=== PATIENT | male | born 1970 | race Caucasian/White ===

== ENCOUNTER → 2016-04-30 | Outpatient (CLI) | payer BC ==
--- NOTE | 2016-05-02 15:49 | ECHOF ---
Referral Reason:Chest Tightness R07.89 MEASUREMENTS -------- HEIGHT: 167.6 cm WEIGHT: 109.8 kg BP: 154/91 RVIDd: 3.1 cm (< 3.3) IVSd: 1.3 cm (0.6 - 1.1) LVIDd: 4.5 cm (3.9 - 5.3) LVPWd: 1.2 cm (0.6 - 1.1) IVSs: 1.7 cm LVIDs: 2.6 cm LVPWs: 1.9 cm LA Diam: 3.6 cm (2.7 - 3.8) LAESV Index (A-L): 12.01 ml/m Ao Diam: 3.4 cm (2.0 - 3.7) AV Cusp: 2.4 cm (1.5 - 2.6) MV EXCURSION: 16.312 mm (> 18.000) MV EF SLOPE: 36 mm/s (70 - 150) EPSS: 0.7 cm MV E Shahram: 0.70 m/s MV DecT: 214 ms MV A Shahram: 0.84 m/s MV E/A Ratio: 0.84 FINDINGS -------- Sinus rhythm. This was a technically good study. The left ventricular size is normal. There is mild concentric left ventricular hypertrophy. Overall left ventricular systolic function is normal with, an EF between 60 - 65 %. The right ventricle is normal in size and function. Normal LA size by volume 22+/-6 ml/m2. The right atrium is normal in size. The aortic valve is trileaflet and appears structurally normal. Mild mitral annular calcification present. The tricuspid valve appears structurally normal. The pulmonic valve is normal. There is no pulmonic regurgitation present. The aortic root size is normal. IVC Not well visulized. There is no pericardial effusion. CONCLUSIONS -------- 1. Sinus rhythm. 2. Mild mitral annular calcification present. 3. The tricuspid valve appears structurally normal. 4. The aortic root size is normal. 5. IVC Not well visulized. 6. There is no pericardial effusion. 7. This was a technically good study. 8. The left ventricular size is normal. 9. There is mild concentric left ventricular hypertrophy. 10. Overall left ventricular systolic function is normal with, an EF between 60 - 65 %. 11. The right ventricle is normal in size and function. 12. Normal LA size by volume 22+/-6 ml/m2. 13. The right atrium is normal in size. 14. The aortic valve is trileaflet and appears structurally normal. CEMENT SPRAYER HELPER: Santa Combs RDCS
== END | disposition home or self-care (01) ==
LOC: RADECHMAIN 14:37
PROVIDERS: ATTEND Family Medicine
DX: I05.9 Rheumatic mitral valve disease, unspecified (principal)
CPT/HCPCS: 93306

== ENCOUNTER → 2016-08-26 | Outpatient (CLI) | payer BC ==
--- NOTE | 2016-08-26 12:04 | US ---
EXAMINATION TYPE: MSK ultrasound bilateral feet DATE OF EXAM: 08/26/2016 COMPARISON: NONE CLINICAL HISTORY: 46-year-old male M72.2 Plantar fascial fibromatosis bilateral. Patient with previou s left plantar fibroma removed 17 years ago, recurred one to 2 years ago. Right-sided fibroma present for one year. Surgical removal planned bilaterally. TECHNIQUE: Multiple sonographic images along the bilateral plantar fascia to include the sites of pal pable abnormality. FINDINGS: Right: Along the medial band of the plantar fascia near the arch of the foot, there is a lobulated heterogen eous mass measuring 3.4 cm long by 1.0 cm thick by 2.8 cm wide. The origin of the plantar fascia appe ars within normal limits. Left: Along the medial band of the plantar fascia just proximal to the ball of the foot, there is a heterog eneous lobulated mass measuring 4.8 cm long by 1.3 cm thick by 3.9 cm wide. In addition, there is a small plantar calcaneal spur and thickening at the origin of the plantar fasc ia up to 9 mm. No discrete tear is seen. COMBINED IMPRESSION: 1. Right: Large lobulated plantar fibroma near the level of the arch of the foot measuring up to 3.4 x 2.8 cm. 2. Left: Large lobulated plantar fibroma just proximal to the ball of the foot measuring 4.8 x 3.9 cm . 3. Left: Thickening at the origin of the plantar fascia up to 9 mm; correlate for any symptoms of angelo ntar fasciitis.
== END | disposition home or self-care (01) ==
LOC: RADUSWWP 10:33
PROVIDERS: ATTEND Podiatrist Foot & Ankle Surgery
DX: M72.2 Plantar fascial fibromatosis (principal)

== ENCOUNTER 2018-11-07 09:31 | Day surgery (SDC) | payer BC ==
[2018-11-03 12:15] VITALS: BMI 36.4
[~2018-11-07 09:31] MED LIST: LACTATED RINGERS 1,000 ML IV SCH; LIDOCAINE 1% 20 ML VIAL (10MG/ML) FOR IV START INTRADERMA PRN
[2018-11-07 10:01] VITALS: RESP 18; TEMP 97.5
[2018-11-07 10:13] LABS: Glucose,Whole Blood 130 mg/dL (75-99)
[2018-11-07] MEDS ORDERED: LIDOCAINE 1% 20 ML VIAL (10MG/ML) FOR IV START INTRADERMA ONE (10:13)
[2018-11-07] MEDS ORDERED: LACTATED RINGERS 1,000 ML IV ONE (10:15)
[2018-11-07] MEDS ORDERED: PROPOFOL 10 MG/ML 20 ML VIAL IV ONE (10:32)
[2018-11-07] MEDS ORDERED: LIDOCAINE 1% INJ 10MG/ML (20 ML MDV) ONE (10:32)
--- NOTE | 2018-11-07 10:38 | P.GSHP ---
History of Present Illness H&P Date: 11/07/18 Chief Complaint: Screening colonoscopy This a 48-year-old male who presents today for screening colonoscopy. Patient denies a significant GI complaints. Past Medical History Past Medical History: Diabetes Mellitus Additional Past Medical History / Comment(s): MIGRAINE HEADACHES History of Any Multi-Drug Resistant Organisms: None Reported Past Surgical History: Heart Catheterization With Stent Additional Past Surgical History / Comment(s): foot surgery-ganglion cysts Past Anesthesia/Blood Transfusion Reactions: No Reported Reaction Date of Last Stent Placement:: 07/15/08 Smoking Status: Former smoker - Past Family History Mother Family Medical History: No Reported History Medications and Allergies Home Medications Medication Instructions Recorded Confirmed Type Semaglutide [Ozempic] 0.25 mg SQ WEEKLY 10/31/18 11/07/18 History metFORMIN HCL 1,000 mg PO BID 10/31/18 11/07/18 History Omeprazole [PriLOSEC] 20 mg PO AC-BID 11/03/18 11/07/18 History Allergies Allergy/AdvReac Type Severity Reaction Status Date / Time Penicillins Allergy Severe Anaphylaxis Verified 11/07/18 10:01 Surgical - Exam Vital Signs Temp Pulse Resp BP Pulse Ox 97.5 F L 85 18 113/82 94 L 11/07/18 09:59 11/07/18 09:59 11/07/18 09:59 11/07/18 09:59 11/07/18 09:59 - General well developed, well nourished, no distress - Eyes PERRL - ENT normal pinna - Neck no masses - Respiratory normal expansion - Cardiovascular Rhythm: regular - Abdomen Abdomen: soft, non tender Results - Labs Abnormal Lab Results - Last 24 Hours (Table) 11/07/18 Range/Units 10:12 POC Glucose (mg/dL) 130 H (75-99) mg/dL Assessment and Plan Assessment: We'll perform screening colonoscopy.
--- NOTE | 2018-11-07 10:52 | P.OP ---
Date of Procedure: 11/07/18 Preoperative Diagnosis: Screening colonoscopy Postoperative Diagnosis: Normal colon Procedure(s) Performed: Colonoscopy Anesthesia: MAC Surgeon: Ramsey Solis Pathology: none sent Condition: stable Disposition: PACU Description of Procedure: PROCEDURE: The patient was placed on the endoscopy table in the lateral position. Digital rectal examination was performed which revealed no abnormalities. The prostate was symmetrical without nodules. Flexible colonoscope was then placed in the patient's anus and passed throughout the entire colon. The ileocecal valve was visualized. The cecum, ascending, transverse, descending and sigmoid colon were normal. The rectum was normal as well. There were no masses, polyps or diverticula noted in the entire colon. SUMMARY OF FINDINGS: Normal colonoscopy.
[2018-11-07 11:23] VITALS: BP 107/69; PULSE 90
== END 2018-11-07 11:36 | disposition home or self-care (01) ==
LOC: ORWHC2ENDO 09:31
PROVIDERS: ATTEND Surgery
DX: Z12.11 Encounter for screening for malignant neoplasm of colon (principal); I25.10 Atherosclerotic heart disease of native coronary artery without angina pectoris; E11.9 Type 2 diabetes mellitus without complications; K21.9 Gastro-esophageal reflux disease without esophagitis; G43.909 Migraine, unspecified, not intractable, without status migrainosus; Z95.5 Presence of coronary angioplasty implant and graft; Z98.890 Other specified postprocedural states; Z87.891 Personal history of nicotine dependence; Z79.84 Long term (current) use of oral hypoglycemic drugs; Z79.899 Other long term (current) drug therapy; Z88.0 Allergy status to penicillin
CPT/HCPCS: G0121; J2001; J2704; 45378

== ENCOUNTER → 2019-03-09 | Outpatient (CLI) | payer BC ==
--- NOTE | 2019-03-14 12:24 | P.ARTDOP ---
Arterial Doppler LOWER EXTREMITY ARTERIAL DOPPLER: DATE OF SERVICE: 03/09/2019 Reason for study: Follow-up leg stents. Bilateral leg pain. Doppler waveforms: Multiphasic bilaterally throughout. Pulse volume recording: []. Pressure gradients: None. Ankle-brachial indices: Greater than 1 bilaterally. Toe pressures: [] on the right, [] on the left Impression: Normal study.
== END | disposition home or self-care (01) ==
LOC: RADUSWWP 08:47
PROVIDERS: ATTEND Family Medicine
DX: M79.2 Neuralgia and neuritis, unspecified (principal)
CPT/HCPCS: 93922

== ENCOUNTER 2023-02-27 08:50 | Inpatient (IN) | payer BC ==
[2023-02-27] MEDS ORDERED: NITROGLYCERIN SL TABS 0.4 MG TAB SUBLINGUAL STA ×2 (09:02→09:29)
[2023-02-27] MEDS ORDERED: ASPIRIN 81 MG PO STA (09:02)
[2023-02-27] MEDS ORDERED: NITROGLYCERIN OINT 1 INCH/GM PACKET TOPICAL STA (09:02)
--- NOTE | 2023-02-27 09:15 | ED ---
General Adult HPI - General Chief complaint: Chest Pain Stated complaint: Chest Pain Time Seen by Provider: 02/27/23 09:00 Source: patient, RN notes reviewed, old records reviewed Mode of arrival: wheelchair Limitations: no limitations - History of Present Illness Initial comments: This a 53-year-old male with a past medical history significant for cardiac stent, diabetes, high cholesterol and a history of smoking. Patient states a couple days ago he had chest pain but went away and he woke up this morning with chest pain. Patient states it started to migrate over to his left arm and he is mildly short of breath. Patient denies any recent fever chills or cough per patient denies any palpitations. Patient denies headache patient denies numbne ss weakness. Patient denies any abdominal pain patient denies nausea vomiting diarrhea. Patient denies any diaphoretic episodes. Patient states the pain is significant and it is very heavy pressure sensation - Related Data Home Medications Medication Instructions Recorded Confirmed Semaglutide [Ozempic] 0.25 mg SQ WEEKLY 10/31/18 11/07/18 metFORMIN HCL [Glucophage] 1,000 mg PO BID 10/31/18 11/07/18 Omeprazole [PriLOSEC] 20 mg PO AC-BID 11/03/18 11/07/18 Allergies Allergy/AdvReac Type Severity Reaction Status Date / Time Penicillins Allergy Severe Anaphylaxis Verified 02/27/23 08:55 Review of Systems ROS Statement: Those systems with pertinent positive or pertinent negative responses have been documented in the HPI. ROS Other: All systems not noted in ROS Statement are negative. Past Medical History Past Medical History: Diabetes Mellitus Additional Past Medical History / Comment(s): MIGRAINE HEADACHES History of Any Multi-Drug Resistant Organisms: None Reported Past Surgical History: Heart Catheterization With Stent Additional Past Surgical History / Comment(s): foot surgery-ganglion cysts Past Anesthesia/Blood Transfusion Reactions: No Reported Reaction Date of Last Stent Placement:: 07/15/08 Past Psychological History: No Psychological Hx Reported Smoking Status: Never smoker Past Alcohol Use History: Daily Past Drug Use History: None Reported - Past Family History Mother Family Medical History: No Reported History General Exam - General Exam Comments Initial Comments: GENERAL: Patient is well-developed and well-nourished. Patient is nontoxic and well- hydrated and is in mild distress. ENT: Neck is soft and supple. No significant lymphadenopathy is noted. Oropharynx is clear. Moist mucous membranes. Neck has full range of motion without eliciting any pain. EYES: The sclera were anicteric and conjunctiva were pink and moist. Extraocular movements were intact and pupils were equal round and reactive to light. Eyelids were unremarkable. PULMONARY: Unlabored respirations. Good breath sounds bilaterally. No audible rales rhonchi or wheezing was noted. CARDIOVASCULAR: There is a regular rate and rhythm without any murmurs gallops or rubs. ABDOMEN: Soft and nontender with normal bowel sounds. SKIN: Skin is clear with no lesions or rashes and otherwise unremarkable. NEUROLOGIC: Patient is alert and oriented x3. Cranial nerves II through XII are grossly intact. Motor and sensory are also intact. Normal speech, volume and content. Symmetrical smile. MUSCULOSKELETAL: Normal extremities with adequate strength and full range of motion. LYMPHATICS: No significant lymphadenopathy is noted PSYCHIATRIC: Normal psychiatric evaluation. Limitations: no limitations Course Vital Signs 02/27/23 02/27/23 02/27/23 08:53 09:10 09:30 Temperature 97.6 F Pulse Rate 80 78 74 Respiratory 18 19 18 Rate Blood Pressure 155/106 150/100 116/76 O2 Sat by Pulse 98 96 94 L Oximetry 02/27/23 02/27/23 09:40 09:45 Temperature Pulse Rate 75 87 Respiratory 11 L 12 Rate Blood Pressure 116/77 102/72 O2 Sat by Pulse 93 L 96 Oximetry Medical Decision Making - Medical Decision Making EKG is interpreted by myself. EKG shows a sinus rhythm at 93 bpm CO interval 247 QRSs 105 QT interval 331 QTC is 382. Patient's EKG shows ST segment depression in V1 and V2 and slight ST segment elevation in 2 and 3 She was sitting at the EKG it was suspicious enough with his history I spoke with Dr. Ovalle and he agreed to come see the patient in the emergency department I walked into the room and saw the patient's monitor look like ST segment elevation so I repeated an EKG EKG was interpreted by myself shows a sinus rhythm at 71 bpm CO interval 267 QRSs 102 QT interval 374 QTC is 396. Patient's EKG shows ST segment elevation in II, III, and F aVF and ST segment depression in V1 and V2 patient also has some ST segment elevation in V6. Was pt. sent in by a medical professional or institution (, PA, WILDLAND FI[employer] OPERATIONS SPECIALIST, urgent care, hospital, or long term...) When possible be specific @ -No Did you speak to anyone other than the patient for history (EMS, parent, family, police, friend...)? What history was obtained from this source @ -No Did you review nursing and triage notes (agree or disagree)? Why? @ -I reviewed and agree with nursing and triage notes Were old charts reviewed (outside hosp., previous admission, EMS record, old EKG, old radiological studies, urgent care reports/EKG's, long term records)? Report findings @ -I reviewed prior charts and prior lab work on this patient Differential Diagnosis (chest pain, altered mental status, abdominal pain women, abdominal pain men, vaginal bleeding, weakness, fever, dyspnea, syncope, headac he, dizziness, GI bleed, back pain, seizure, CVA, palpatations, mental health, musculoskeletal)? @ -Differential Chest Pain: Stable Angina, Unstable Angina, STEMI, NSTEMI Aortic Dissection, Pneumothorax, Musculoskeletal, Esophageal Spasm GERD, Cholecystitis, Pancreatitis, Zoster, this is not meant to be an all-inclusive list. EKG interpreted by me (3pts min.). @ -As above X-rays interpreted by me (1pt min.). @ -Chest x-ray shows no acute abnormality CT interpreted by me (1pt min.). @ -None done U/S interpreted by me (1pt. min.). @ -None done What testing was considered but not performed or refused? (CT, X-rays, U/S, labs)? Why? @ -None What meds were considered but not given or refused? Why? @ -None Did you discuss the management of the patient with other professionals (professionals i.e. Dr. PA, WIL[employer]AND FI[employer] OPERATIONS SPECIALIST, lab, RT, psych nurse, social media content manager, vtc technician, teacher, gift officer, case advocate)? Give summary @ -No Was smoking cessation discussed for >3mins.? @ -No Was critical care preformed (if so, how long)? @ -35 minutes Were there social determinants of health that impacted care today? How? (Homelessness, low income, unemployed, alcoholism, drug addiction, transportation, low edu. Level, literacy, decrease access to med. care, fpc, rehab)? @ -No Was there de-escalation of care discussed even if they declined (Discuss DNR or withdrawal of care, Hospice)? DNR status @ -No What co-morbidities impacted this encounter? (DM, HTN, Smoking, COPD, CAD, Cancer, CVA, ARF, Chemo, Hep., AIDS, mental health diagnosis, sleep apnea, morbid obesity)? @ -None Was patient admitted / discharged? Hospital course, mention meds given and route, prescriptions, significant lab abnormalities, going to OR and other pertinent info. @ -Patient's EKG initially showed some changes consistent with possible OK. There was not enough elevation to indicate a STEMI however he did call Dr. Ovalle immediately and let him know that this patient needed to be seen sooner than later. I went back in the room to reevaluate the patient after the first nitroglycerin the monitor showed significant ST segment elevation or repeated the EKG and it showed significant ST segment elevation in the inferior leads. At this point in time I called a STEMI overhead and called in the cathete rization team. Patient received aspirin Lipitor nitro sublingual and heparin. Undiagnosed new problem with uncertain prognosis? @ -No Drug Therapy requiring intensive monitoring for toxicity (Heparin, Nitro, Insulin, Cardizem)? @ -No Were any procedures done? @ -No Diagnosis/symptom? @ -STEMI Acute, or Chronic, or Acute on Chronic? @ -Acute Uncomplicated (without systemic symptoms) or Complicated (systemic symptoms)? @ -Complicated Side effects of treatment? @ -No Exacerbation, Progression, or Severe Exacerbation? @ -No Poses a threat to life or bodily function? How? (Chest pain, USA, OK, pneumonia, PE, COPD, DKA, ARF, appy, cholecystitis, CVA, Diverticulitis, Homicidal, Suicidal, threat to staff... and all critical care pts) @ -Yes this can lead to an OK and possible morbidity or mortality - Lab Data Result diagrams: 02/27/23 09:10 02/27/23 09:10 Lab Results 02/27/23 02/27/23 02/27/23 Range/Units 09:10 09:10 09:10 WBC 7.6 (3.8-10.6) k/uL RBC 5.02 (4.30-5.90) m/uL Hgb 15.3 (13.0-17.5) gm/dL Hct 46.1 (39.0-53.0) % MCV 91.8 (80.0-100.0) fL MCH 30.4 (25.0-35.0) pg MCHC 33.1 (31.0-37.0) g/dL RDW 13.0 (11.5-15.5) % Plt Count 176 (150-450) k/uL MPV 8.8 Neutrophils % 57 % Lymphocytes % 29 % Monocytes % 7 % Eosinophils % 2 % Basophils % 1 % Neutrophils # 4.3 (1.3-7.7) k/uL Lymphocytes # 2.2 (1.0-4.8) k/uL Monocytes # 0.5 (0-1.0) k/uL Eosinophils # 0.2 (0-0.7) k/uL Basophils # 0.1 (0-0.2) k/uL PT 10.4 (10.0-12.5) sec INR 0.9 (<1.2) APTT 24.7 (22.0-30.0) sec Sodium 138 (137-145) mmol/L Potassium 4.6 (3.5-5.1) mmol/L Chloride 99 (98-107) mmol/L Carbon Dioxide 22 (22-30) mmol/L Anion Gap 17 mmol/L BUN 9 (9-20) mg/dL Creatinine 0.60 L (0.66-1.25) mg/dL Est GFR (CKD-EPI)AfAm >90 (>60 ml/min/1.73 sqM) Est GFR (CKD-EPI)NonAf >90 (>60 ml/min/1.73 sqM) Glucose 200 H (74-99) mg/dL Calcium 9.8 (8.4-10.2) mg/dL Magnesium 1.7 (1.6-2.3) mg/dL Total Bilirubin 0.7 (0.2-1.3) mg/dL AST 73 H (17-59) U/L ALT 44 (4-49) U/L Alkaline Phosphatase 140 H (38-126) U/L Troponin I (0.000-0.034) ng/mL Total Protein 8.0 (6.3-8.2) g/dL Albumin 4.3 (3.5-5.0) g/dL 02/27/23 Range/Units 09:10 WBC (3.8-10.6) k/uL RBC (4.30-5.90) m/uL Hgb (13.0-17.5) gm/dL Hct (39.0-53.0) % MCV (80.0-100.0) fL MCH (25.0-35.0) pg MCHC (31.0-37.0) g/dL RDW (11.5-15.5) % Plt Count (150-450) k/uL MPV Neutrophils % % Lymphocytes % % Monocytes % % Eosinophils % % Basophils % % Neutrophils # (1.3-7.7) k/uL Lymphocytes # (1.0-4.8) k/uL Monocytes # (0-1.0) k/uL Eosinophils # (0-0.7) k/uL Basophils # (0-0.2) k/uL PT (10.0-12.5) sec INR (<1.2) APTT (22.0-30.0) sec Sodium (137-145) mmol/L Potassium (3.5-5.1) mmol/L Chloride (98-107) mmol/L Carbon Dioxide (22-30) mmol/L Anion Gap mmol/L BUN (9-20) mg/dL Creatinine (0.66-1.25) mg/dL Est GFR (CKD-EPI)AfAm (>60 ml/min/1.73 sqM) Est GFR (CKD-EPI)NonAf (>60 ml/min/1.73 sqM) Glucose (74-99) mg/dL Calcium (8.4-10.2) mg/dL Magnesium (1.6-2.3) mg/dL Total Bilirubin (0.2-1.3) mg/dL AST (17-59) U/L ALT (4-49) U/L Alkaline Phosphatase (38-126) U/L Troponin I 0.087 H* (0.000-0.034) ng/mL Total Protein (6.3-8.2) g/dL Albumin (3.5-5.0) g/dL Critical Care Time Critical Care Time: Yes Total Critical Care Time: 35 Disposition Clinical Impression: ST elevation myocardial infarction (STEMI) Disposition: ADMITTED IP TO THIS [facility] Time of Disposition: 09:33
[2023-02-27 09:20] LABS: Basophils # (A) 0.1 k/uL (0-0.2); Basophils % (A) 1 %; Eosinophils # (A) 0.2 k/uL (0-0.7); Eosinophils % (A) 2 %; HCT 46.1 % (39.0-53.0); HGB 15.3 gm/dL (13.0-17.5); Lymphocytes # (A) 2.2 k/uL (1.0-4.8); Lymphocytes % (A) 29 %; MCH 30.4 pg (25.0-35.0); MCHC 33.1 g/dL (31.0-37.0); MCV 91.8 fL (80.0-100.0); Mean Platelet Volume 8.8; Monocytes # (A) 0.5 k/uL (0-1.0); Monocytes % (A) 7 %; Neutrophils # (A) 4.3 k/uL (1.3-7.7); Neutrophils % (A) 57 %; Platelet Count 176 k/uL (150-450); RBC 5.02 m/uL (4.30-5.90); WBC 7.6 k/uL (3.8-10.6)
[2023-02-27] MEDS ORDERED: HEPARIN SODIUM 1,000 UN/ML (10ML VL) IV ONE ×3 (09:25→12:06)
[2023-02-27] MEDS ORDERED: ATORVASTATIN 80 MG TAB PO STA (09:26)
[2023-02-27 09:35] LABS: ALT 44 U/L (4-49); AST 73 U/L (17-59); African American GFR (CKD) >90 (>60 ml/min/1.73 sqM); Albumin 4.3 g/dL (3.5-5.0); Alkaline Phosphatase 140 U/L (38-126); Anion Gap 17 mmol/L; Blood Urea Nitrogen 9 mg/dL (9-20); Calcium 9.8 mg/dL (8.4-10.2); Carbon Dioxide 22 mmol/L (22-30); Chloride 99 mmol/L (98-107); Glucose 200 mg/dL (74-99); Magnesium 1.7 mg/dL (1.6-2.3); Non-African American GFR(CKD) >90 (>60 ml/min/1.73 sqM); Potassium 4.6 mmol/L (3.5-5.1); Sodium 138 mmol/L (137-145); Total Bilirubin 0.7 mg/dL (0.2-1.3)
[2023-02-27] MEDS ORDERED: NITROGLYCERIN SL TABS 0.4 MG TAB SUBLINGUAL PRN (09:35)
[2023-02-27 09:36] LABS: INR 0.9 (<1.2); Partial Thromboplastin Time 24.7 sec (22.0-30.0); Prothrombin Time 10.4 sec (10.0-12.5)
--- NOTE | 2023-02-27 09:40 | XR ---
EXAM: XR chest 1V portable CLINICAL INDICATION:Male, 53 years old with history of Chest Pain; [facility] COMPARISON: None. TECHNIQUE: Chest single view. FINDINGS: Exam is limited by patient body habitus. Lines/tubes/devices: EKG leads overlie the chest. No indwelling lines are seen. Cardiomediastinum: Cardiac silhouette appears mildly enlarged. Unremarkable mediastinal silhouette. Vasculature: Mild central congestion. Mildly increased interstitial markings can be related to edema or pneumonitis, with a component of chronic change possible. Lungs/pleura: No consolidation, sizeable effusion, or visible pneumothorax. Bones/soft tissues: Bony thorax appears grossly intact as seen. Regional soft tissues appear unremarkable. IMPRESSION: Cardiomegaly with mild pulmonary vascular congestion, correlate for mild CHF.
[2023-02-27] MEDS ORDERED: SODIUM CHLORIDE 0.9% 1,000 ML IV ONE (09:53)
--- NOTE | 2023-02-27 09:57 | P.CRDCN ---
History of Present Illness Consult date: 02/27/23 History of present illness: HISTORY OF PRESENTING ILLNESS Patient is a 53-year-old male with past medical history of CAD status post PCI done by Dr. Richard Garcia likely distal RCA medtronic LOC He also has history of hypertension, diabetes, dyslipidemia, obesity. He was a previous smoker but since last PCI does not smoke. Next presented to the hospital because of substernal chest pain. Patient reported that for last 3-4 days he has been having on and off substernal chest heaviness and burning sensation. This morning he woke up from sleep with significant substernal chest pain which was associated with significant diaphoresis. REVIEW OF SYSTEMS 14 point review of system is negative except what is mentioned above in HPI. PHYSICAL EXAMINATION Vital signs reviewed. Head: Normocephalic. Eyes: Sclerae nonicteric. Neck: Brisk carotid upstroke, no jugular venous distention. Lungs: Clear to auscultation. Heart: Regular rate and rhythm, S1-S2, no S3, no murmur or rub. Abdomen: Soft nontender, positive bowel sounds no organomegaly. Extremities: No edema, intact distal pulses. Neuro: Alert, oritented, no focal deficits ASSESSMENT Inferior STEMI Prior history of CAD status post PCI to RCA Essential hypertension Dyslipidemia Obesity Type II Diabetes Previous smoker Bedside echo showed an EF of 55%, No obvious regional wall motion abnormality appreciated on limited imaging, no pericardial effusion ECG showed ST elevations in inferior leads. Sinus rhythm. Reciprocal ST changes Troponin elevated 0.08. Creatinine 0.6 Patient has not had any strokes, is not in any antiplatelets with aspirin. He has not any systemic anticoagulation PLAN Plan for emergent cardiac catheterization Further recommendations to follow Echocardiogram Past Medical History Past Medical History: Diabetes Mellitus Additional Past Medical History / Comment(s): MIGRAINE HEADACHES History of Any Multi-Drug Resistant Organisms: None Reported Past Surgical History: Heart Catheterization With Stent Additional Past Surgical History / Comment(s): foot surgery-ganglion cysts Past Anesthesia/Blood Transfusion Reactions: No Reported Reaction Date of Last Stent Placement:: 07/15/08 Past Psychological History: No Psychological Hx Reported Smoking Status: Never smoker Past Alcohol Use History: Daily Past Drug Use History: None Reported - Past Family History Mother Family Medical History: No Reported History Medications and Allergies Home Medications Medication Instructions Recorded Confirmed Type Semaglutide [Ozempic] 0.25 mg SQ WEEKLY 10/31/18 11/07/18 History metFORMIN HCL [Glucophage] 1,000 mg PO BID 10/31/18 11/07/18 History Omeprazole [PriLOSEC] 20 mg PO AC-BID 11/03/18 11/07/18 History Allergies Allergy/AdvReac Type Severity Reaction Status Date / Time Penicillins Allergy Severe Anaphylaxis Verified 02/27/23 08:55 Physical Exam Vitals: Vital Signs Temp Pulse Resp BP Pulse Ox 02/27/23 09:40 75 11 L 116/77 93 L 02/27/23 09:30 74 18 116/76 94 L 02/27/23 09:10 78 19 150/100 96 02/27/23 08:53 97.6 F 80 18 155/106 98 Intake and Output 02/26/23 02/27/23 02/27/23 22:59 06:59 14:59 Other: Weight 106.594 kg Results 02/27/23 09:10 02/27/23 09:10 Cardiac Enzymes 02/27/23 02/27/23 Range/Units 09:10 09:10 AST 73 H (17-59) U/L Troponin I 0.087 H* (0.000-0.034) ng/mL Coagulation 02/27/23 Range/Units 09:10 PT 10.4 (10.0-12.5) sec APTT 24.7 (22.0-30.0) sec CBC 02/27/23 Range/Units 09:10 WBC 7.6 (3.8-10.6) k/uL RBC 5.02 (4.30-5.90) m/uL Hgb 15.3 (13.0-17.5) gm/dL Hct 46.1 (39.0-53.0) % Plt Count 176 (150-450) k/uL Comprehensive Metabolic Panel 02/27/23 Range/Units 09:10 Sodium 138 (137-145) mmol/L Potassium 4.6 (3.5-5.1) mmol/L Chloride 99 (98-107) mmol/L Carbon Dioxide 22 (22-30) mmol/L BUN 9 (9-20) mg/dL Creatinine 0.60 L (0.66-1.25) mg/dL Glucose 200 H (74-99) mg/dL Calcium 9.8 (8.4-10.2) mg/dL AST 73 H (17-59) U/L ALT 44 (4-49) U/L Alkaline Phosphatase 140 H (38-126) U/L Total Protein 8.0 (6.3-8.2) g/dL Albumin 4.3 (3.5-5.0) g/dL Current Medications Generic Name Dose Route Start Last Admin Trade Name Freq PRN Reason Stop Dose Admin Aspirin 325 mg 02/28/23 09:00 Aspirin 325 Mg Tab PO DAILY BHUMI Nitroglycerin 0.4 mg 02/27/23 09:35 Nitroglycerin Sl Tabs 0.4 Mg Tab SUBLINGUAL Q5M PRN Chest Pain Intake and Output 02/26/23 02/27/23 02/27/23 22:59 06:59 14:59 Other: Weight 106.594 kg Patient Weight 02/28/23 06:59 Weight 106.594 kg 02/27/23 09:10 02/27/23 09:10
[2023-02-27] MEDS ORDERED: fentaNYL (PF) 50 MCG/ML 2 ML AMP ONE (10:02)
[2023-02-27] MEDS ORDERED: LIDOCAINE 1% INJ 10MG/ML (30 ML VIAL-PF) SQ ONE (10:04)
[2023-02-27] MEDS ORDERED: TICAGRELOR 90 MG TAB ONE (10:11)
[2023-02-27] MEDS ORDERED: TICAGRELOR 90 MG TAB PO ONE (10:19)
[2023-02-27] MEDS: HEPARIN SODIUM,PORCINE 5,000 UNIT/ML 1 ML VIAL IV ONE ×2 (10:19→10:50)
[2023-02-27] MEDS ORDERED: MIDAZOLAM 2 MG/2 ML VIAL IVP ONE (10:19)
[2023-02-27] MEDS ORDERED: fentaNYL (PF) 50 MCG/1 ML VIAL IVP ONE (10:19)
--- NOTE | 2023-02-27 10:21 | P.CARDCATH ---
Date of Procedure: 02/27/23 Description of Procedure: PROCEDURES PERFORMED: Selective coronary angiography left side only Moderate conscious sedation 15 mins Right radial access INDICATION: STEMI CONSENT: I have discussed the risks, benefits and alternative therapies for the above-mentioned procedure, sedation/analgesia and necessary blood product administration (if indicated, as they pertain to this patient). The patient has indicated understanding and acceptance of the risks and procedures discussed. Conscious Sedation: Patient's ECG, heart rate, blood pressure, pulse oximetry was monitored throughout the duration of procedure under my direct supervision. [1] mg Versed and [50] mg Fentanyl were used for induction of moderate conscious sedation. Total duration of moderate concious sedation 15 minutes. PROCEDURE: After explaining the risks, benefits and alternatives of the above mentioned procedures in detail to the patient, informed consent was obtained. Patient was taken to the catheterization lab, prepped and draped in usual sterile fashion using universal precuations. Barbow and dahlia test were performed to confirm adequate perfusion to fingers. Ultrasound was used to identify the radial artery. 1% lidocaine was infiltrated over the right radial artery. A 6-[place] sheath was placed and secured in the right radial artery using modified Seldinger technique. The sheath was flushed and 5 mg verapamil was administered intra-arterially. J tipped wire was advanced under fluoroscopic guidance. Once the wire tip reached aortic root 2500 units of IV heparin was given. Patient is a 4000 units of IV heparin in the ER Over the wire JL4 diagnostic catheter was advanced. Wire was removed, catheter was flushed and manipulated under fluoroscopy to selectively engaged the left coronary ostium. Left coronary angioplasty was performed in different angiographic projections. Review of the images showed culprit left circumflex with 100% occlusion with BRUCE 0 flow. Decision was made to proceed with emergent intervention. The case was discussed with Dr. Schroeder. Right coronary angiogram was not performed due to urgency of intervention. HEMODYNAMICS: Aortic Pressure: 106/70 mmHg. SELECTIVE CORONARY ARTERIOGRAPHY: LEFT MAIN: The left main is a large caliber vessel which bifurcates into the LAD and circumflex. Left main appears angiographically normal. LEFT ANTERIOR DESCENDING CORONARY ARTERY: LAD is a large caliber vessel which wraps around to the apex. Proximal LAD appears angiographically normal. Mid LAD has 50-60% disease. Distal LAD has 70-80% disease. Distal LAD small vessel. LEFT CIRCUMFLEX CORONARY ARTERY: large caliber codominant. Just after giving a large OM1 branch, there is 100% thrombotic occlusion of LCx with BRUCE 0 flow IMPRESSION: 100% thrombotic occlusion of distal LCx stenosis with BRUCE 0 flow. 50-60% mid LAD 790-80% distal small LAD PLAN: emergent cardiac catheterization Performing Physician Angelo Yepez MD Thank you for letting [facility] cardiology team to get involved in this patient's care. Please feel free to contact our office in case of any specific questions
[2023-02-27] MEDS: PHENYLEPHRINE-0.9% NACL SYG 1,000 MCG/10 ML SYRINGE IVP ONE ×2 (10:31→10:36)
--- NOTE | 2023-02-27 11:25 | P.PRCINT ---
Percutaneous Coronary Int. - Percutaneous Coronary Intervention Percutaneous Coronary Intervention: PROCEDURES PERFORMED: Left heart catheterization, bilateral coronary angiography, PCI mid circumflex with a 3.0 x 33 mm Xience LOC, post dilated with a 3.75mm NC balloon, IVUS circumflex INDICATION: Inferior STEMI PROCEDURE: After the risks, benefits and alternatives of the above mentioned procedure explained in detail with the patient, informed consent was obtained. Patient was taken to the catheterization lab and prepped and draped in usual fashion. A 6-Cypriot sheath had been placed in the right radial artery. Diagnostic images showed occlusion of the mid circumflex which was codominant. Decision was made to perform PCI of the circumflex. A 6-Cypriot CLS 3.5 guide was used to engage the left main. A 0.014 BMW wire was advanced however was selective into a small OM branch. Therefore a 0.014 whisper wire was advanced into a further OM branch. Balloon angioplasty was performed with a 3.0 x 12 mm balloon. Next an additional 0.014 whisper wire was advanced into the PDA. Next intravascular ultrasound was performed which showed proximal vessel 3.75 mm and distal approximately 3.0 mm. Next a long 3.0 x 33 mm Xience LOC was placed in the mid circumflex. The proximal and mid portions of the stent were postdilated with a 3.75 noncompliant balloon. Repeat intravascular ultrasound showed excellent stent apposition with no dissection. Final angiograms were performed. Pre-intervention there was 100% stenosis and BRUCE 0 flow and postintervention there was BRUCE 3 flow with 0% stenosis. Right coronary angiography was performed with a 5-Cypriot FR4 catheter in various views. A 5-Cypriot FR4 catheter was inserted into the left ventricle and pressure measurements were obtained. Patient's blood pressure was low and LVEDP increased consistent with cardiogenic shock however appeared to be improving throughout the case and suspect will be temporary. Therefore risks versus benefits of left ventricular assist device did not feel was warranted with patient on low-dose norepinephrine. The right radial sheath was removed and a TR band was placed with hemostasis achieved. The patient tolerated the procedure well. Patient was transported back to the post catheterization holding area in stable condition. Conscious Sedation: Patient was monitored under the direct supervision of myself for conscious sedation using Versed and fentanyl for a total duration of 52 minutes HEMODYNAMICS: Aorta: 85/50 LV: 124/22, LVEDP 32 SELECTIVE CORONARY ARTERIOGRAPHY: LEFT MAIN: The left main is a large caliber vessel which bifurcates into the LAD and circumflex. There is no significant stenosis. LEFT ANTERIOR DESCENDING CORONARY ARTERY: LAD is a large caliber vessel which wraps around to the apex. There is a mid LAD 50-60% stenosis. LEFT CIRCUMFLEX CORONARY ARTERY: Left circumflex is a large vessel with 100% mid circumflex stenosis, long area of stenosis. The circumflex gives off a PDA and is codominant RIGHT CORONARY ARTERY: The right coronary artery issmall to moderate caliber ves nely which gives off a small PDA and is codominant vessel. There is no significant stenosis FINAL IMPRESSION: 1. CAD as described above including mid LAD 50-60% stenosis, 100% mid circumflex stenosis 2. S/p PCI mid circumflex with a 3.0 x 33 mm Xience LOC, post dilated with a 3.75mm NC balloon 3. Cardiogenic shock however appears improving with decreasing vasopressor requirements after stenting 4. Increased left-sided filling pressures PLAN: 1. Aggressive risk factor modification per most recent ACC/AHA guidelines 2. Continue dual antiplatelets with aspirin and Brillinta for 12 months
[2023-02-27 11:36] LABS: Glucose,Whole Blood 247 mg/dL (70-110)
[2023-02-27] MEDS ORDERED: SODIUM CHLORIDE 0.9% 1,000 ML IV SCH (11:45)
[2023-02-27] MEDS: NOREPINEPHRINE 4 MG in SODIUM CHLORIDE 0.9% 250 ML IV SCH (11:52)
[2023-02-27] MEDS ORDERED: IOPAMIDOL-370 200ML BTL INJ ONE (12:07)
[2023-02-27] MEDS ORDERED: DEXTROSE 50% SYRINGE 50 ML IVP PRN ×2 (12:43)
[2023-02-27] MEDS: INSULIN ASPART (NovoLOG) 100 UNIT/ML VIAL SQ SCH ×4 (13:01→20:43)
--- NOTE | 2023-02-27 14:08 | P.HPIM ---
History of Present Illness H&P Date: 02/27/23 History of present illness; patient is a 53-year-old gentleman with past medical history significant for hypertension, diabetes, hyperlipidemia, coronary artery disease who came to the hospital because of chest pain. Patient stated that he was having intermittent chest pain for the last few days, chest pain was central in location, was lasting a few minutes, no aggravating or relieving factors associated with this chest pain. Denied any shortness of breath. Denied any pa lpitation. Denies any orthopnea or PND. Patient stated that this morning he was woken up from sleep with severe chest pain was located in the sternal area, nonradiating, associated with severe diaphoresis, at that time patient became concerned and came to the ER Initial lab work done in the ER showed WBC 7.6, hemoglobin 15.3, platelet count 176, sodium 130 potassium 4.6, BUN 9, creatinine 0.60 calcium 9.8, magnesium 1.7, bilirubin 0.7, troponin 0.087 EKG done in the ER showed heart rate of 93 , ST segment elevation seen leads 2, 3 aVF, no T-wave inversions seen. Patient went for emergent cardiac cath, patient underwent PCI of the mid circumflex a 3.0 x 33 mm Xience LOC, post dilated with a 3.75mm NC balloon Patient admitted to ICU for postcardiac cath care REVIEW OF SYSTEMS: CONSTITUTIONAL: No fever, no malaise, no fatigue. HEENT: No recent visual problems or hearing problems. Denied any sore throat. CARDIOVASCULAR: As mentioned above PULMONARY: No shortness of breath, no cough, no hemoptysis. GASTROINTESTINAL: No diarrhea, no nausea, no vomiting, no abdominal pain. NEUROLOGICAL: No headaches, no weakness, no numbness. HEMATOLOGICAL: Denies any bleeding or petechiae. GENITOURINARY: Denies any burning micturition, frequency, or urgency. MUSCULOSKELETAL/RHEUMATOLOGICAL: Denies any joint pain, swelling, or any muscle pain. ENDOCRINE: Denies any polyuria or polydipsia. The rest of the 14-point review of systems is negative. PHYSICAL EXAMINATION: GENERAL: The patient is alert and oriented x3, not in any acute distress. Well developed, well nourished. HEENT: Pupils are round and equally reacting to light. EOMI. No scleral icterus. No conjunctival pallor. Normocephalic, atraumatic. No pharyngeal erythema. No thyromegaly. CARDIOVASCULAR: S1 and S2 present. No murmurs, rubs, or gallops. PULMONARY: Chest is clear to auscultation, no wheezing or crackles. ABDOMEN: Soft, nontender, nondistended, normoactive bowel sounds. No palpable organomegaly. MUSCULOSKELETAL: No joint swelling or deformity. EXTREMITIES: No cyanosis, clubbing, or pedal edema. NEUROLOGICAL: Gross neurological examination did not reveal any focal deficits. SKIN: No rashes. Assessment and plan Acute ST elevation [place] Cardiogenic shock Hypertension Hyperlipidemia Diabetes mellitus Monitor vital signs Monitor CBC Monitor CMP Continue telemetry monitoring Ordered 2-D echo Status post PCI of the mid circumflex a 3.0 x 33 mm Xience LOC, post dilated with a 3.75mm NC balloon Ordered lipid panel ordered HbA1c level Monitor blood sugar levels, continue sliding scale insulin cardiology following Labs and medication were reviewed.. Continue same treatment. Continue with symptomatic treatment. Resume home medication. Monitor labs and vitals. DVT and GI prophylaxis. Further recommendations as per clinical course of the patient Dictation was produced using [employer] dictation software. please excuse any grammatical, word or spelling errors. Past Medical History Past Medical History: Diabetes Mellitus Additional Past Medical History / Comment(s): MIGRAINE HEADACHES History of Any Multi-Drug Resistant Organisms: None Reported Past Surgical History: Heart Catheterization With Stent Additional Past Surgical History / Comment(s): foot surgery-ganglion cysts Past Anesthesia/Blood Transfusion Reactions: No Reported Reaction Date of Last Stent Placement:: 07/15/08 Past Psychological History: No Psychological Hx Reported Smoking Status: Never smoker Past Alcohol Use History: Daily Past Drug Use History: None Reported - Past Family History Mother Family Medical History: No Reported History Medications and Allergies Home Medications Medication Instructions Recorded Confirmed Type Semaglutide [Ozempic] 0.25 mg SQ WEEKLY 10/31/18 11/07/18 History metFORMIN HCL [Glucophage] 1,000 mg PO BID 10/31/18 11/07/18 History Omeprazole [PriLOSEC] 20 mg PO AC-BID 11/03/18 11/07/18 History Allergies Allergy/AdvReac Type Severity Reaction Status Date / Time Penicillins Allergy Severe Anaphylaxis Verified 02/27/23 08:55 Physical Exam Vitals: Vital Signs Temp Pulse Resp BP Pulse Ox 02/27/23 13:00 94 20 126/86 93 L 02/27/23 12:15 98 18 155/95 94 L 02/27/23 12:00 98.6 F 94 16 135/81 96 02/27/23 11:45 91 18 156/105 97 02/27/23 11:33 80 02/27/23 09:45 87 12 102/72 96 02/27/23 09:40 75 11 L 116/77 93 L 02/27/23 09:30 74 18 116/76 94 L 02/27/23 09:10 78 19 150/100 96 02/27/23 08:53 97.6 F 80 18 155/106 98 Intake and Output 02/26/23 02/27/23 02/27/23 22:59 06:59 14:59 Intake Total 447.175 Output Total 0 Balance 447.175 Intake: Intake, IV Titration 247.175 Amount Norepinephrine 4 mg In 7.175 Sodium Chloride 0.9% 250 ml @ 0.03 MCG/KG/MIN 12. 184 mls/hr IV .[id number] [facility] Rx#:[id number] Sodium Chloride 0.9% 1, 240 000 ml @ 80 mls/hr IV . [id number] [facility] Rx#:[id number] Oral 200 Output: Urine 0 Other: Weight 106.594 kg Results CBC & Chem 7: 02/27/23 09:10 02/27/23 09:10 Labs: Abnormal Lab Results - Last 24 Hours (Table) 02/27/23 02/27/23 02/27/23 Range/Units 09:10 09:10 11:33 Creatinine 0.60 L (0.66-1.25) mg/dL Glucose 200 H (74-99) mg/dL POC Glucose (mg/dL) 247 H (70-110) mg/dL AST 73 H (17-59) U/L Alkaline Phosphatase 140 H (38-126) U/L Troponin I 0.087 H* (0.000-0.034) ng/mL Thrombosis Risk Factor Assmnt - Choose All That Apply Any of the Below Risk Factors Present?: No Other Risk Factors: No Other congenital or acquired thrombophilia - If yes, enter type in comment: No Thrombosis Risk Factor Assessment Level: Very Low Risk
[2023-02-27] MEDS ORDERED: Magnesium Replacement Protocol 1 EACH MISC MISCELLANE PRN (15:27)
[2023-02-27] MEDS ORDERED: MAGNESIUM SULFATE-D5W PMX 1 GM in DEXTROSE/WATER 1 100ML.BAG IVPB ONE (15:27)
[2023-02-27 16:16] LABS: Glucose,Whole Blood 146 mg/dL (70-110)
[2023-02-27 20:29] LABS: Glucose,Whole Blood 165 mg/dL (70-110)
[2023-02-28 06:11] LABS: Glucose,Whole Blood 195 mg/dL (70-110)
[2023-02-28 06:18] LABS: Basophils % (A) 1 %; Eosinophils # (A) 0.1 k/uL (0-0.7); Eosinophils % (A) 1 %; HCT 43.4 % (39.0-53.0); HGB 14.1 gm/dL (13.0-17.5); Lymphocytes # (A) 1.4 k/uL (1.0-4.8); Lymphocytes % (A) 17 %; MCH 29.6 pg (25.0-35.0); MCHC 32.5 g/dL (31.0-37.0); MCV 91.1 fL (80.0-100.0); Mean Platelet Volume 9.1; Monocytes # (A) 0.6 k/uL (0-1.0); Monocytes % (A) 7 %; Neutrophils # (A) 6.2 k/uL (1.3-7.7); Neutrophils % (A) 73 %; Platelet Count 160 k/uL (150-450); RBC 4.77 m/uL (4.30-5.90); RDW 13.4 % (11.5-15.5); WBC 8.5 k/uL (3.8-10.6)
[2023-02-28 06:33] LABS: African American GFR (CKD) >90 (>60 ml/min/1.73 sqM); Anion Gap 12 mmol/L; Blood Urea Nitrogen 11 mg/dL (9-20); Calcium 9.1 mg/dL (8.4-10.2); Carbon Dioxide 25 mmol/L (22-30); Chloride 100 mmol/L (98-107); Glucose 172 mg/dL (74-99); Magnesium 1.9 mg/dL (1.6-2.3); Non-African American GFR(CKD) >90 (>60 ml/min/1.73 sqM); Potassium 4.2 mmol/L (3.5-5.1); Sodium 137 mmol/L (137-145)
[2023-02-28] MEDS: INSULIN ASPART (NovoLOG) 100 UNIT/ML VIAL SQ SCH ×2 (06:42→11:40)
[2023-02-28] MEDS ORDERED: Magnesium Replacement Protocol 1 EACH MISC MISCELLANE PRN (07:27)
[2023-02-28] MEDS ORDERED: MAGNESIUM SULFATE-D5W PMX 1 GM in DEXTROSE/WATER 1 100ML.BAG IVPB ONE (08:30)
[2023-02-28] MEDS ORDERED: ASPIRIN 325 MG TAB PO SCH (09:00)
[2023-02-28] MEDS: NOREPINEPHRINE 4 MG in SODIUM CHLORIDE 0.9% 250 ML IV SCH (10:01)
[2023-02-28 10:31] VITALS: TEMP 97.7
[2023-02-28 11:38] LABS: Glucose,Whole Blood 255 mg/dL (70-110)
[2023-02-28 12:11] VITALS: BP 100/71
--- NOTE | 2023-02-28 12:41 | P.PN ---
Subjective Progress Note Date: 02/28/23 patient is a 53-year-old gentleman with past medical history significant for hypertension, diabetes, hyperlipidemia, coronary artery disease who came to the hospital because of chest pain. Patient stated that he was having intermittent chest pain for the last few days, chest pain was central in location, was lasting a few minutes, no aggravating or relieving factors associated with this chest pain. Denied any shortness of breath. Denied any palpitation. Denies any orthopnea or PND. Patient stated that this morning he was woken up from sleep with severe chest pain was located in the sternal area, nonradiating, associated with severe diaphoresis, at that time patient became concerned and came to the ER Initial lab work done in the ER showed WBC 7.6, hemoglobin 15.3, platelet count 176, sodium 130 potassium 4.6, BUN 9, creatinine 0.60 calcium 9.8, magnesium 1.7, bilirubin 0.7, troponin 0.087 EKG done in the ER showed heart rate of 93 , ST segment elevation seen leads 2, 3 aVF, no T-wave inversions seen. Patient went for emergent cardiac cath, patient underwent PCI of the mid circumflex a 3.0 x 33 mm Xience LCO, post dilated with a 3.75mm NC balloon Patient admitted to ICU for postcardiac cath care 02/28/23. Patient seen and examined. Sitting upright in the bed. No acute issues overnight. Denies any chest pain shortness of breath REVIEW OF SYSTEMS: CONSTITUTIONAL: No fever, no malaise,. CARDIOVASCULAR: No chest pain, no palpitations, no syncope. PULMONARY: No shortness of breath, no cough, GASTROINTESTINAL: No diarrhea, no nausea, no vomiting, no abdominal pain. NEUROLOGICAL: No headaches, no weakness, PHYSICAL EXAMINATION: GENERAL: The patient is alert and oriented x3, not in any acute distress. Well developed, well nourished. HEENT: Pupils are round and equally reacting to light. EOMI. No scleral icterus. No conjunctival pallor. Normocephalic, atraumatic. No pharyngeal erythema. No thyromegaly. CARDIOVASCULAR: S1 and S2 present. No murmurs, rubs, or gallops. PULMONARY: Chest is clear to auscultation, no wheezing or crackles. ABDOMEN: Soft, nontender, nondistended, normoactive bowel sounds. No palpable organomegaly. MUSCULOSKELETAL: No joint swelling or deformity. EXTREMITIES: No cyanosis, clubbing, or pedal edema. NEUROLOGICAL: Gross neurological examination did not reveal any focal deficits. SKIN: No rashes. Assessment and plan Acute ST elevation [place] Cardiogenic shock Hypertension Hyperlipidemia Diabetes mellitus Monitor vital signs Monitor CBC Monitor CMP Continue telemetry monitoring Ordered 2-D echo Status post PCI of the mid circumflex a 3.0 x 33 mm Xience LOC, post dilated with a 3.75mm NC balloon Monitor blood sugar levels, continue sliding scale insulin Continue dual antiplatelet therapy cardiology following Labs and medication were reviewed.. Continue same treatment. Continue with symptomatic treatment. Resume home medication. Monitor labs and vitals. DVT and GI prophylaxis. Further recommendations as per clinical course of the patient Dictation was produced using [employer] dictation software. please excuse any grammatical, word or spelling errors. Objective - Vital Signs Vital signs: Vital Signs Temp 97.7 F 02/28/23 12:00 Pulse 69 02/28/23 12:00 Resp 26 H 02/28/23 12:00 BP 100/71 02/28/23 12:00 Pulse Ox 98 02/28/23 12:00 FiO2 Intake & Output 02/27/23 02/28/23 02/28/23 18:59 06:59 18:59 Intake Total 5722.142 7081 1500 Output Total 800 3450 1400 Balance 887.175 -1750 100 Weight 106.594 kg 108.6 kg Intake: Intake, IV Titration 587.175 100 Amount Magnesium Sulfate-D5w Pmx 100 1 gm In Dextrose/Water 1 100ml.bag @ 100 mls/hr IVPB ONCE ONE Rx#: [id number] Magnesium Sulfate-D5w Pmx 100 1 gm In Dextrose/Water 1 100ml.bag @ 100 mls/hr IVPB ONCE ONE Rx#: [id number] Norepinephrine 4 mg In 7.175 Sodium Chloride 0.9% 250 ml @ 0.03 MCG/KG/MIN 12. 184 mls/hr IV .[id number] [facility] Rx#:[id number] Sodium Chloride 0.9% 1, 480 0 000 ml @ 80 mls/hr IV . [id number] [facility] Rx#:[id number] Oral 200 1200 1400 Tube Feeding 900 500 Output: Urine 800 3450 1400 Other: Voiding Method Bedpan Urinal Urinal - Labs CBC & Chem 7: 02/28/23 05:14 02/28/23 05:14 Labs: Abnormal Lab Results - Last 24 Hours (Table) 02/27/23 02/27/23 02/27/23 Range/Units 12:42 16:14 17:04 Creatinine (0.66-1.25) mg/dL Glucose (74-99) mg/dL POC Glucose (mg/dL) 146 H (70-110) mg/dL Hemoglobin A1c (<=6.0) % Troponin I 22.800 H* 83.500 H* (0.000-0.034) ng/mL 02/27/23 02/27/23 02/28/23 Range/Units 17:06 20:26 05:14 Creatinine 0.54 L (0.66-1.25) mg/dL Glucose 172 H (74-99) mg/dL POC Glucose (mg/dL) 165 H (70-110) mg/dL Hemoglobin A1c 9.4 H (<=6.0) % Troponin I (0.000-0.034) ng/mL 02/28/23 02/28/23 Range/Units 06:09 11:36 Creatinine (0.66-1.25) mg/dL Glucose (74-99) mg/dL POC Glucose (mg/dL) 195 H 255 H (70-110) mg/dL Hemoglobin A1c (<=6.0) % Troponin I (0.000-0.034) ng/mL
--- NOTE | 2023-02-28 13:32 | P.PN ---
Subjective Progress Note Date: 02/28/23 Progress note: Patient is doing well from cardiac vessel standpoint. He is hemodynamically stable. His fasting blood pressure is 100/70, heart rate 70 beats a minute, sinus rhythm. No other lumps noticed on telemetry overnight. Denies any chest pain chest pressure. Reports being comfortable. Right radial artery is intact with no signs of hematoma or bleeding. HISTORY OF PRESENTING ILLNESS Patient is a 53-year-old male with past medical history of CAD status post PCI done by Dr. Richard Garcia likely distal RCA medtronic LOC He also has history of hypertension, diabetes, dyslipidemia, obesity. He was a previous smoker but since last PCI does not smoke. Next presented to the hospital because of substernal chest pain. Patient reported that for last 3-4 days he has been having on and off substernal chest heaviness and burning sensation. This morning he woke up from sleep with significant substernal chest pain which was associated with significant diaphoresis. REVIEW OF SYSTEMS 14 point review of system is negative except what is mentioned above in HPI. PHYSICAL EXAMINATION Vital signs reviewed. Head: Normocephalic. Eyes: Sclerae nonicteric. Neck: Brisk carotid upstroke, no jugular venous distention. Lungs: Clear to auscultation. Heart: Regular rate and rhythm, S1-S2, no S3, no murmur or rub. Abdomen: Soft nontender, positive bowel sounds no organomegaly. Extremities: No edema, intact distal pulses. Neuro: Alert, oritented, no focal deficits ASSESSMENT Inferior STEMI s/p PCI to Large OM Prior history of CAD status post PCI to RCA Essential hypertension Dyslipidemia Obesity Type II Diabetes Previous smoker Bedside echo showed an EF of 55%, No obvious regional wall motion abnormality appreciated on limited imaging, no pericardial effusion ECG showed ST elevations in inferior leads. Sinus rhythm. Reciprocal ST changes Troponin elevated 0.08. Creatinine 0.6 Patient has not had any strokes, is not in any antiplatelets with aspirin. He has not any systemic anticoagulation PLAN Aspirin, Brilinta 90 mg twice, and atorvastatin 80 mg Hold any antihypertensives and beta maryan due to low resting heart rate and blood pressure Echocardiogram reviewed, no major valvular abnormality or any pericardial effusion. Patient is cleared to be discharged from cardiac vessel standpoint with outpatient follow-up with Dr. Yepez in next 1-2 weeks Objective - Vital Signs Vital signs: Vital Signs Temp 97.7 F 01/01/24 12:00 Pulse 69 02/28/23 12:00 Resp 26 H 02/28/23 12:00 BP 100/71 02/28/23 12:00 Pulse Ox 98 02/28/23 12:00 FiO2 Intake & Output 02/27/23 02/28/23 02/28/23 18:59 06:59 18:59 Intake Total 6148.468 9388 1500 Output Total 800 3450 1400 Balance 887.175 -1750 100 Weight 106.594 kg 108.6 kg Intake: Intake, IV Titration 587.175 100 Amount Magnesium Sulfate-D5w Pmx 100 1 gm In Dextrose/Water 1 100ml.bag @ 100 mls/hr IVPB ONCE ONE Rx#: [id number] Magnesium Sulfate-D5w Pmx 100 1 gm In Dextrose/Water 1 100ml.bag @ 100 mls/hr IVPB ONCE ONE Rx#: [id number] Norepinephrine 4 mg In 7.175 Sodium Chloride 0.9% 250 ml @ 0.03 MCG/KG/MIN 12. 184 mls/hr IV .[id number] [facility] Rx#:[id number] Sodium Chloride 0.9% 1, 480 0 000 ml @ 80 mls/hr IV . [id number] [facility] Rx#:[id number] Oral 200 1200 1400 Tube Feeding 900 500 Output: Urine 800 3450 1400 Other: Voiding Method Bedpan Urinal Urinal - Labs CBC & Chem 7: 02/28/23 05:14 02/28/23 05:14 Labs: Abnormal Lab Results - Last 24 Hours (Table) 02/27/23 02/27/23 02/27/23 Range/Units 12:42 16:14 17:04 Creatinine (0.66-1.25) mg/dL Glucose (74-99) mg/dL POC Glucose (mg/dL) 146 H (70-110) mg/dL Hemoglobin A1c (<=6.0) % Troponin I 22.800 H* 83.500 H* (0.000-0.034) ng/mL 02/27/23 02/27/23 02/28/23 Range/Units 17:06 20:26 05:14 Creatinine 0.54 L (0.66-1.25) mg/dL Glucose 172 H (74-99) mg/dL POC Glucose (mg/dL) 165 H (70-110) mg/dL Hemoglobin A1c 9.4 H (<=6.0) % Troponin I (0.000-0.034) ng/mL 02/28/23 02/28/23 Range/Units 06:09 11:36 Creatinine (0.66-1.25) mg/dL Glucose (74-99) mg/dL POC Glucose (mg/dL) 195 H 255 H (70-110) mg/dL Hemoglobin A1c (<=6.0) % Troponin I (0.000-0.034) ng/mL
[2023-02-28] MEDS ORDERED: TICAGRELOR 90 MG TAB PO SCH (13:45)
--- NOTE | 2023-02-28 13:49 | P.DS ---
Providers Date of admission: 02/27/23 09:35 Expected date of discharge: 02/28/23 Attending physician: Jose Louis MD Consults: 02/27/23 09:35 Consult Physician Stat Consulting Provider: Angelo Yepez Consult Reason/Comments: STEMI Do you want consulting provider notified?: Already Contacted Primary care physician: Cosmo Bolaños MD Hospital Course: Discharge diagnoses; Acute ST elevation [place] Cardiogenic shock Hypertension Hyperlipidemia Diabetes mellitus Hospital course; patient is a 53-year-old gentleman with past medical history significant for hypertension, diabetes, hyperlipidemia, coronary artery disease who came to the hospital because of chest pain. Patient stated that he was having intermittent chest pain for the last few days, chest pain was central in location, was lasting a few minutes, no aggravating or relieving factors associated with this chest pain. Denied any shortness of breath. Denied any palpitation. Denies any orthopnea or PND. Patient stated that this morning he was woken up from sleep with severe chest pain was located in the sternal area, nonradiating, associated with severe diaphoresis, at that time patient became concerned and came to the ER Initial lab work done in the ER showed WBC 7.6, hemoglobin 15.3, platelet count 176, sodium 130 potassium 4.6, BUN 9, creatinine 0.60 calcium 9.8, magnesium 1.7, bilirubin 0.7, troponin 0.087 EKG done in the ER showed heart rate of 93 , ST segment elevation seen leads 2, 3 aVF, no T-wave inversions seen. Patient went for emergent cardiac cath, patient underwent PCI of the mid circumflex a 3.0 x 33 mm Xience LOC, post dilated with a 3.75mm NC balloon Patient admitted to ICU for postcardiac cath care 02/28/23. Patient seen and examined. Sitting upright in the bed. No acute issues overnight. Denies any chest pain shortness of breath. Cardiology lorenzo mmended discharging patient on aspirin and plantar. Hold off any B Blockers and antihypertensive secondary to low blood pressures. PHYSICAL EXAMINATION: GENERAL: The patient is alert and oriented x3, not in any acute distress. Well developed, well nourished. HEENT: Pupils are round and equally reacting to light. EOMI. No scleral icterus. No conjunctival pallor. Normocephalic, atraumatic. No pharyngeal erythema. No thyromegaly. CARDIOVASCULAR: S1 and S2 present. No murmurs, rubs, or gallops. PULMONARY: Chest is clear to auscultation, no wheezing or crackles. ABDOMEN: Soft, nontender, nondistended, normoactive bowel sounds. No palpable organomegaly. MUSCULOSKELETAL: No joint swelling or deformity. EXTREMITIES: No cyanosis, clubbing, or pedal edema. NEUROLOGICAL: Gross neurological examination did not reveal any focal deficits. SKIN: No rashes. Dictation was produced using [employer] dictation software. please excuse any grammatical, word or spelling errors. Plan - Discharge Summary Discharge Rx Participant: No New Discharge Prescriptions: New Nitroglycerin Sl Tabs [Nitrostat] 0.4 mg SUBLINGUAL Q5M PRN #30 tab PRN Reason: Chest Pain Ticagrelor [Brilinta] 90 mg PO BID 30 Days #60 tab Atorvastatin Calcium [Lipitor] 80 mg PO DAILY #30 tab Continue Omeprazole [PriLOSEC] 20 mg PO AC-BID Pregabalin [Lyrica] 200 mg PO BID Cyclobenzaprine [Flexeril] 10 mg PO HS PRN PRN Reason: Muscle Pain Aspirin EC [Ecotrin Low Dose] 81 mg PO DAILY Magnesium Oxide [Magox 400] 270 mg PO BID sitaGLIPtin [Januvia] 100 mg PO DAILY@2100 metFORMIN HCL [Glucophage] 850 mg PO BID Discontinued Meloxicam [Mobic] 15 mg PO DAILY@2100 Rosuvastatin [Crestor] 10 mg PO FR Discharge Medication List Omeprazole [PriLOSEC] 20 mg PO AC-BID 11/03/18 [History] Aspirin EC [Ecotrin Low Dose] 81 mg PO DAILY 02/27/23 [History] Cyclobenzaprine [Flexeril] 10 mg PO HS PRN 02/27/23 [History] Magnesium Oxide [Magox 400] 270 mg PO BID 02/27/23 [History] Pregabalin [Lyrica] 200 mg PO BID 02/27/23 [History] metFORMIN HCL [Glucophage] 850 mg PO BID 02/27/23 [History] sitaGLIPtin [Januvia] 100 mg PO DAILY@2100 02/27/23 [History] Atorvastatin Calcium [Lipitor] 80 mg PO DAILY #30 tab 02/28/23 [Rx] Nitroglycerin Sl Tabs [Nitrostat] 0.4 mg SUBLINGUAL Q5M PRN #30 tab 02/28/23 [Rx] Ticagrelor [Brilinta] 90 mg PO BID 30 Days #60 tab 02/28/23 [Rx] Follow up Appointment(s)/Referral(s): Cosmo Bolaños MD [Primary Care Provider] - 1-2 days Russ Schroeder DO [STAFF PHYSICIAN] - 1 Week Activity/Diet/Wound Care/Special Instructions: Resume metformin from 03/02/23 because of recent exposure to dye
[2023-02-28 14:36] LABS: Chol/HDL Ratio 4.89 Ratio
[2023-02-28 14:38] VITALS: PULSE 73; RESP 20
--- NOTE | 2023-02-28 16:52 | CA ---
Transthoracic Echo Report Name: Cj Suarez Age: 53 Gender: M : 1970 Exam Date: 02/28/2023 11:11 Exam Location: [place] [facility] Ht (in): 66 Wt (lb): 235 Ordering Physician: Russ Schroeder DO ([email or web address]) Attending/Referring Phys: Creative Perfumer Santa Combs RDCS Procedure CPT: Indications: Post STEMI Cardiac Hx: Technical Quality: Fair Contrast 1: Total Dose (mL): Contrast 2: Total Dose (mL): MEASUREMENTS (Male / Female) Normal Values 2D ECHO LV Diastolic Diameter PLAX 4.9 cm 4.2 - 5.9 / 3.9 - 5.3 cm LV Systolic Diameter PLAX 3.2 cm IVS Diastolic Thickness 1.2 cm 0.6 - 1.0 / 0.6 - 0.9 cm LVPW Diastolic Thickness 1.4 cm 0.6 - 1.0 / 0.6 - 0.9 cm LV Relative Wall Thickness 0.5 RV Internal Dim ED PLAX 3.2 cm LVOT Diameter 2.1 cm LA Systolic Diameter LX 4.4 cm 3.0 - 4.0 / 2.7 - 3.8 cm LV Diastolic Volume MOD BP 99.4 cm??? 67 - 155 / 56 - 104 cm??? LV Systolic Volume MOD BP 30.7 cm??? - 58 / 19 - 49 cm??? LV Ejection Fraction MOD BP 69.1 % >= 55 % LV Cardiac Index MOD BP 1992.1 cm???/min???m??? LV Diastolic Volume MOD 4C 93.2 cm??? LV Systolic Volume MOD 4C 29.2 cm??? LV Ejection Fraction MOD 4C 68.7 % LV Cardiac Index MOD 4C 1856.6 cm???/min???m??? LV Diastolic Length 4C 7.8 cm LV Systolic Length 4C 7.3 cm LV Diastolic Volume MOD 2C 94.4 cm??? LV Systolic Volume MOD 2C 29.1 cm??? LV Ejection Fraction MOD 2C 69.2 % LV Cardiac Index MOD 2C 1894.1 cm???/min???m??? LV Diastolic Length 2C 8.9 cm LV Systolic Length 2C 6.0 cm LA Volume 61.6 cm??? 18 - 58 / 22 - 52 cm??? LA Volume Index 27.0 cm???/m??? 16 - 28 cm???/m??? M-MODE Aortic Root Diameter MM 3.2 cm LA Systolic Diameter MM 1.2 cm LA Ao Ratio MM 0.4 AV Cusp Separation MM 1.8 cm DOPPLER AV Peak Velocity 108.5 cm/s AV Peak Gradient 4.7 mmHg AV Mean Velocity 110.9 cm/s AV Mean Gradient 5.6 mmHg AV Velocity Time Integral 33.8 cm MV Area PHT 3.3 cm??? Mitral E Point Velocity 92.7 cm/s Mitral A Point Velocity 57.5 cm/s Mitral E to A Ratio 1.6 MV Deceleration Time 227.6 ms MV E' Velocity 4.9 cm/s Mitral E to MV E' Ratio 18.9 TR Peak Velocity 266.7 cm/s TR Peak Gradient 28.4 mmHg Right Ventricular Systolic Press 32.9 mmHg FINDINGS Left Ventricle Left ventricular ejection fraction is estimated at 50-55 %. Mildly increased septal wall thickness. Left ventricular cavity size normal. Mildly decrease LV systolic function. Basal inferior and inferolateral hypokinesia Right Ventricle Normal right ventricular size. Right ventricular systolic pressure within normal limits. Right Atrium Normal right atrial size. Left Atrium Mild left atrial dilatation Mitral Valve Structurally normal mitral valve. Trace to mild mitral regurgitation. Aortic Valve Trileaflet aortic valve. No aortic valve stenosis or regurgitation. Tricuspid Valve Structurally normal tricuspid valve. Trace to mild tricuspid regurgitation. Pulmonic Valve Pulmonic valve not well visualized. No pulmonic regurgitation. Pericardium No pericardial effusion. Aorta Normal size aortic root and proximal ascending aorta. CONCLUSIONS Left ventricular ejection fraction is estimated at 50-55 %. Mild concentric LVH Basal inferior and inferolateral wall hypokinesia Mild left atrial dilatation Calcific Thickening of aortic valve with no stenosis No pericardial effusion No significant mitral regurgitation Previewed by: Dr Angelo Yepez (Electronically Signed) Final Date: 28 February 2023 16:51
[2023-03-01] MEDS ORDERED: ASPIRIN 81 MG PO SCH (09:00)
== END 2023-02-28 14:51 | disposition home or self-care (01) | DRG 321 ==
LOC: EC 08:50 → 2SICU 09:35
PROVIDERS: ADMIT Internal Medicine; ATTEND Internal Medicine
PROC: 027034Z Dilation of Coronary Artery, One Artery with Drug-eluting Intraluminal Device, Percutaneous Approach (ICD-10-PCS; principal; 2023-02-27 09:50)
PROC: B240ZZ3 Ultrasonography of Single Coronary Artery, Intravascular (ICD-10-PCS; principal; 2023-02-27 09:50)
PROC: B2111ZZ Fluoroscopy of Multiple Coronary Arteries using Low Osmolar Contrast (ICD-10-PCS; principal; 2023-02-27 09:50)
PROC: 4A023N7 Measurement of Cardiac Sampling and Pressure, Left Heart, Percutaneous Approach (ICD-10-PCS; principal; 2023-02-27 09:50)
DX: I21.19 ST elevation (STEMI) myocardial infarction involving other coronary artery of inferior wall (principal); R57.0 Cardiogenic shock; I10 Essential (primary) hypertension; E11.9 Type 2 diabetes mellitus without complications; I25.10 Atherosclerotic heart disease of native coronary artery without angina pectoris; E78.00 Pure hypercholesterolemia, unspecified; E66.9 Obesity, unspecified; Z68.38 Body mass index [BMI] 38.0-38.9, adult; Z95.5 Presence of coronary angioplasty implant and graft; Z87.891 Personal history of nicotine dependence; Z79.84 Long term (current) use of oral hypoglycemic drugs; Z88.0 Allergy status to penicillin; Z28.310 Unvaccinated for COVID-19
CPT/HCPCS: 36415; 71045; 76937; 80048; 80053; 80061; 83036; 83735; 84484; 85025; 85610; 85730; 92978; 93005; 93306; 93454; 96374; 99291

== ENCOUNTER → 2023-05-23 | Outpatient (CLI) | payer BC ==
--- NOTE | 2023-05-23 15:30 | XR ---
EXAMINATION TYPE: XR foot complete RT DATE OF EXAM: 05/23/2023 COMPARISON: None HISTORY: Diabetic foot ulcer TECHNIQUE: 3 view right foot FINDINGS: Achilles and plantar calcaneal spurs are present. A very subtle oblique fracture of the lat eral proximal metaphyseal proximal phalanx fifth digit may be present. This is in the lateral metaphy sis extending towards the articular surface. Correlate with patient's pain. No suspicious cortical erosion to suggest osteomyelitis is evident. There may be some bandaging adjac ent to the great toe. IMPRESSION: 1. No suspicious changes for acute osteomyelitis. Follow-up 3 phase bone scan can be performed as cl inically indicated. 2. An occult fracture of the lateral proximal phalanx fifth digit should be considered.
[2023-05-23 16:36] LABS: ALT 35 U/L (10-49); AST 37 U/L (14-35); Albumin 4.4 g/dL (3.8-4.9); Albumin/Globulin Ratio 1.38 Ratio (1.60-3.17); Alkaline Phosphatase 124 U/L (41-126); BUN/Creat Ratio 6.57 Ratio (12.00-20.00); Blood Urea Nitrogen 4.6 mg/dL (9.0-27.0); C Reactive Protein <0.30 mg/dL (0.00-0.80); Carbon Dioxide 22.7 mmol/L (21.6-31.8); Chloride 99 mmol/L (96-109); Globulin 3.2 g/dL (1.6-3.3); Glucose 150 mg/dL (70-110); Potassium 4.1 mmol/L (3.5-5.5); Sodium 138 mmol/L (135-145); Total Bilirubin 0.4 mg/dL (0.3-1.2); Total Protein 7.6 g/dL (6.2-8.2)
[2023-05-23 16:37] LABS: Prealbumin 17.8 mg/dL (18.0-42.0)
[2023-05-23 18:18] LABS: Basophils # (A) 0.05 X 10*3/uL (0.00-0.10); Basophils % (A) 0.5 %; Eosinophils # (A) 0.11 X 10*3/uL (0.04-0.35); Eosinophils % (A) 1.1 %; Lymphocytes # (A) 1.42 X 10*3/uL (0.90-5.00); Lymphocytes % (A) 14.4 %; MCH 30.7 pg (27.0-32.0); MCHC 33.3 g/dL (32.0-37.0); MCV 92.2 FL (80.0-97.0); Mean Platelet Volume 11.1 FL (9.5-12.2); Monocytes # (A) 0.53 X 10*3/uL (0.20-1.00); Monocytes % (A) 5.4 %; NRBC Per 100 WBC 0 X 10*3/uL (0.00-0.01); Neutrophils # (A) 7.68 X 10*3/uL (1.80-7.70); Neutrophils % (A) 78.2 %; Platelet Count 214 X 10*3/uL (140-440); RBC 4.88 X 10*6/uL (4.40-5.60); RDW 13.7 % (11.5-14.5); WBC 9.83 X 10*3/uL (4.50-10.00)
[2023-05-23 18:36] LABS: Erythrocyte Sedimentation Rate 14 mm/Hr (0-20)
== END ==
LOC: RADXRMAIN 09:32
PROVIDERS: ATTEND Family Medicine
DX: S92.811A Other fracture of right foot, initial encounter for closed fracture (principal); E11.621 Type 2 diabetes mellitus with foot ulcer; L97.512 Non-pressure chronic ulcer of other part of right foot with fat layer exposed; E11.40 Type 2 diabetes mellitus with diabetic neuropathy, unspecified; L97.515 Non-pressure chronic ulcer of other part of right foot with muscle involvement without evidence of necrosis
CPT/HCPCS: 80053; 83036; 84134; 85025; 85652; 86140

== ENCOUNTER → 2023-05-31 | Outpatient (CLI) | payer BC ==
--- NOTE | 2023-05-31 14:50 | US ---
EXAMINATION TYPE: US venous doppler duplex LE DATE OF EXAM: 05/31/2023 2:11 PM COMPARISON: NONE CLINICAL INDICATION: Male, 53 years old with history of L97.512 NON-PRESSURE CHRONIC ULCER OF OTHER P ART O; On blood thinners. No redness or swelling. Right foot wound. SIDE PERFORMED: Bilateral TECHNIQUE: The lower extremity deep venous system is examined utilizing real time linear array sonog blanca with graded compression, doppler sonography and color-flow sonography. VESSELS IMAGED: Common Femoral Vein Deep Femoral Vein Greater Saphenous Vein * Femoral Vein Popliteal Vein Small Saphenous Vein * Proximal Calf Veins (* superficial vessels) Right Leg: Negative for DVT Left Leg: Negative for DVT IMPRESSION: Grayscale, color doppler, spectral doppler imaging performed of the deep veins of the lo wer extremities. There is normal flow, compressibility, vascular waveforms.
== END | disposition home or self-care (01) ==
LOC: RADUSWWP 13:35
PROVIDERS: ATTEND Family Medicine
DX: E11.621 Type 2 diabetes mellitus with foot ulcer (principal); L97.512 Non-pressure chronic ulcer of other part of right foot with fat layer exposed; L97.515 Non-pressure chronic ulcer of other part of right foot with muscle involvement without evidence of necrosis; E11.40 Type 2 diabetes mellitus with diabetic neuropathy, unspecified
CPT/HCPCS: 93922; 93970